=== PATIENT | male | born 1965 | race Caucasian/White ===

== ENCOUNTER 2017-06-10 07:40 | Day surgery (SDC) | payer OTHER ==
[~2017-06-10 07:40] MED LIST: Lactated Ringers 1,000 ML IV SCH; Lidocaine 1%/Sod Bicarbonate in NS 8.4% 1 ML Syringe IDERM PRN; Sodium Chloride 0.9% 10 ML Syringe FLUSH PRN
--- NOTE | 2017-06-10 08:33 | PCM.PREANE ---
Preanesthetic Assessment - Anesthesia/Transfusion/Family Hx Anesthesia History: Prior Anesthesia Without Reaction Family History of Anesthesia Reaction: No Transfusion History: Prior Transfusion Without Reaction - Review of Systems General: No Symptoms, Other (etoh 10-14 beers per week) Pulmonary: Other (current smoker) Cardiovascular: No Symptoms Gastrointestinal: No Symptoms Neurological: No Symptoms, Other (history of head injury, no residual) Other: Reports: Liver Problems (lesion on liver), Anxiety - Physical Assessment NPO Status Date: 06/09/17 NPO Status Time: 22:30 Pulse: 94 O2 Sat by Pulse Oximetry: 96 Respiratory Rate: 18 Blood Pressure: 131/90 Temperature: 37.1 C Vital Signs: Last Vital Signs Temp 37.1 C 06/10/17 07:40 Pulse 94 06/10/17 07:40 Resp 18 06/10/17 07:40 BP 131/90 06/10/17 07:40 Pulse Ox 96 06/10/17 07:40 Height: 1.73 m Weight: 88.451 kg ASA Class: 2 Mental Status: Alert & Oriented x3 Airway Class: Mallampati = 2 Dentition: Reports: Normal Dentition Thyro-Mental Finger Breadths: 3 Mouth Opening Finger Breadths: 3 ROM/Head Extension: Full Lungs: Clear to Auscultation Cardiovascular: Regular Rate, Regular Rhythm - Allergies Allergies/Adverse Reactions: Allergies Allergy/AdvReac Type Severity Reaction Status Date / Time No Known Allergies Allergy Verified 06/10/17 08:24 - Blood Blood Available: No Product(s) Available: None - Anesthesia Plan Pre-Op Medication Ordered: None - Acknowledgements Anesthesia Type Planned: MAC Pt an Appropriate Candidate for the Planned Anesthesia: Yes Alternatives and Risks of Anesthesia Discussed w Pt/Guardian: Yes Pt/Guardian Understands and Agrees with Anesthesia Plan: Yes PreAnesthesia Questionnaire HEENT History: Reports: Impaired Vision, Other (See Below) Other HEENT History: wears glasses Cardiovascular History: Reports: Other (See Below) Other Cardiovascular History: chest discomfort Respiratory History: Reports: None Gastrointestinal History: Reports: Chronic Diarrhea, Diverticulosis, Other (See Below) Other Gastrointestinal History: diverticula, liver lesion, abdominal pain Genitourinary History: Reports: None 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 Musculoskeletal History: Reports: Other (See Below) Other Musculoskeletal History: right shoulder pain Neurological History: Reports: Other (See Below) Other Neuro History: head injury Psychiatric History: Reports: Anxiety Endocrine/Metabolic History: Reports: Obesity/BMI 30+ Hematologic History: Reports: None Immunologic History: Reports: None Oncologic (Cancer) History: Reports: None Dermatologic History: Reports: None - Past Surgical History Cardiovascular Surgical History: Reports: None Respiratory Surgical History: Reports: None GI Surgical History: Reports: None Female Surgical History: Reports: None Male Surgical History: Reports: None Endocrine Surgical History: Reports: None Neurological Surgical History: Reports: None Musculoskeletal Surgical History: Reports: Other (See Below) Other Musculoskeletal Surgeries/Procedures:: foot surgery, knee surgery, left hip surgery with hardware Oncologic Surgical History: Reports: None Dermatological Surgical History: Reports: None - SUBSTANCE USE Smoking Status *Q: Current Every Day Smoker Days Per Week of Alcohol Use: 7 Number of Drinks Per Day: 2 Total Drinks Per Week: 14 Recreational Drug Use History: No - HOME MEDS Home Medications: Home Meds Multivitamin [Poly-Vitamin] 1 tab PO BID 06/06/17 [History] diphenhydrAMINE HCl [Sleep Aid] 1 tab PO DAILY 06/10/17 [History] - CURRENT (IN HOUSE) MEDS Current Meds: Current Medications Lactated Ringer's (Ringers, Lactated) 1,000 mls @ 125 mls/hr IV ASDIRECTED ELVIA Stop: 06/10/17 23:00 Last Admin: 06/10/17 08:00 Dose: 125 mls/hr Lidocaine/Sodium Bicarbonate (Buffered Lidocaine 1% In Ns 8.4%) 0.25 ml IDERM ONETIME PRN PRN Reason: Prior to IV Start Stop: 06/10/17 18:00 Last Admin: 06/10/17 07:59 Dose: 0.25 ml Sodium Chloride (Saline Flush) 10 ml FLUSH ASDIRECTED PRN PRN Reason: Keep Vein Open Stop: 06/10/17 18:00
[2017-06-10] MEDS ORDERED: fentaNYL 100 MCG/2 ML SDV ONE (08:57)
[2017-06-10] MEDS ORDERED: Propofol 200 MG/20 ML SDV ONE ×2 (08:57→09:45)
[2017-06-10] MEDS ORDERED: Midazolam 1 MG/ML 2 ML SDV ONE (08:58)
--- NOTE | 2017-06-10 10:01 | PCM.OPNOTE ---
- General Post-Op/Procedure Note Date of Surgery/Procedure: 06/10/17 Operative Procedure(s): Colonoscopy with cold forceps rectal polypectomy Findings: 1. Uncomplicated sigmoid diverticulosis 2. Diminutive rectal polyp less than 5 mm in diameter 3. Poor bowel preparation Pre Op Diagnosis: History of sigmoid diverticulitis Post-Op Diagnosis: 1. Sigmoid diverticulosis. 2. Diminutive rectal polyp Anesthesia Technique: MAC, Moderate Sedation Primary Surgeon: Garfield Dill Pathology: Rectal polyp EBL in mLs: 0 Complications: None Condition: Good Free Text/Narrative:: After adequate IV sedation and analgesia was obtained with monitoring the patient was placed on his left side. Perianal inspection and digital rectal examination were performed and were normal. The prostate was grossly normal. A lubricated colonoscope was then inserted into the rectum then advanced to the cecum without difficulty. The bowel preparation was poor. Fine mucosal detail and very small polyps have a lower probability of being seen. The cecum right colon transverse and descending colons were endoscopically normal with no gross mass lesions or inflammatory changes seen. The sigmoid had uncomplicated diverticuli with some thickening of the circular muscle. There were no inflammatory changes or mass lesions. The rectum had a diminutive polyp at about 15 cm from the anal verge. This was removed and retrieved with cold forceps. The retroflexed view was unremarkable. Air was removed as I finished the procedure which she tolerated well. Photographs were taken for the patient and for the medical record.
--- NOTE | 2017-06-10 10:09 | PCM48HPAN ---
Post Anesthesia Note - EVALUATION WITHIN 48HRS OF ANESTHETIC Vital Signs in Normal Range: Yes Patient Participated in Evaluation: Yes Respiratory Function Stable: Yes Airway Patent: Yes Cardiovascular Function Stable: Yes Hydration Status Stable: Yes Pain Control Satisfactory: Yes Nausea and Vomiting Control Satisfactory: Yes Mental Status Recovered: Yes Pulse Rate: 89 SaO2: 93 Resp Rate: 14 Temperature: 36.7 C Blood Pressure: 104/75 Pulse Rate: 89
== END 2017-06-10 10:40 | disposition home or self-care (01) ==
LOC: JD.SDS 07:40
PROVIDERS: ATTEND Surgery
DX: K62.1 Rectal polyp (principal); K57.30 Diverticulosis of large intestine without perforation or abscess without bleeding; F41.9 Anxiety disorder, unspecified; E66.9 Obesity, unspecified; F17.210 Nicotine dependence, cigarettes, uncomplicated; Z68.30 Body mass index [BMI] 30.0-30.9, adult; Z79.899 Other long term (current) drug therapy
CPT/HCPCS: 45380; J2250; J3010; J7120; 00811; J2704

== ENCOUNTER 2017-08-21 14:37 | Emergency (ER) | payer OTHER ==
[2017-08-21] MEDS ORDERED: Acetaminophen/HYDROcodone 325-5 MG Tab PO ONE (15:01)
--- NOTE | 2017-08-21 15:03 | EDM.PDOC ---
ED HPI GENERAL MEDICAL PROBLEM - General Chief Complaint: Upper Extremity Injury/Pain Stated Complaint: LEFT HAND INJURY Time Seen by Provider: 08/21/17 14:50 Source of Information: Reports: Patient - History of Present Illness INITIAL COMMENTS - FREE TEXT/NARRATIVE: Patient is here for evaluation after he had an injury while at work with a nail being shot to the back of his left hand. He is having pain to his left hand. Some mild bleeding. Able to move his fingers. He is not diabetic. Left Hand Pain Score (Numeric/FACES): 4 - Related Data Allergies Allergy/AdvReac Type Severity Reaction Status Date / Time No Known Allergies Allergy Verified 08/21/17 14:48 Home Meds: Home Meds Acetaminophen/HYDROcodone [[place] 325-5 MG] 1 tab PO Q6H PRN #10 tablet 08/21/17 [Rx] Amoxicillin/Potassium Clav [Augmentin 875-125 Tablet] 1 each PO BID #10 tablet 08/21/17 [Rx] Past Medical History HEENT History: Reports: Impaired Vision, Other (See Below) Other HEENT History: wears glasses Cardiovascular History: Reports: Other (See Below) Other Cardiovascular History: chest discomfort Respiratory History: Reports: None Gastrointestinal History: Reports: Chronic Diarrhea, Diverticulosis, Other (See Below) Other Gastrointestinal History: diverticula, liver lesion, abdominal pain Genitourinary History: Reports: None 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 Musculoskeletal History: Reports: Other (See Below) Other Musculoskeletal History: right shoulder pain Neurological History: Reports: Other (See Below) Other Neuro History: head injury Psychiatric History: Reports: Anxiety Endocrine/Metabolic History: Reports: Obesity/BMI 30+ Hematologic History: Reports: None Immunologic History: Reports: None Oncologic (Cancer) History: Reports: None Dermatologic History: Reports: None - Past Surgical History Cardiovascular Surgical History: Reports: None Respiratory Surgical History: Reports: None GI Surgical History: Reports: None Male Surgical History: Reports: None Endocrine Surgical History: Reports: None Neurological Surgical History: Reports: None Musculoskeletal Surgical History: Reports: Other (See Below) Other Musculoskeletal Surgeries/Procedures:: foot surgery, knee surgery, left hip surgery with hardware Oncologic Surgical History: Reports: None Dermatological Surgical History: Reports: None Social & Family History - Caffeine Use Caffeine Use: Reports: None Review of Systems - Review of Systems Review Of Systems: See Below Constitutional: Reports: No Symptoms Musculoskeletal: Reports: Hand Pain (Left hand pain, bleeding. (FB, nail)) Skin: Reports: Wound Neurological: Reports: No Symptoms ED EXAM, GENERAL - Physical Exam Exam: See Below Exam Limited By: No Limitations General Appearance: Alert, WD/WN, Mild Distress Cardiovascular: Normal Peripheral Pulses Extremities: Other (Left hand with nail foreign body, able to see entrance and exit.) Neurological: Alert, Oriented, No Motor/Sensory Deficits Psychiatric: Normal Affect, Normal Mood Skin Exam: Warm, Dry, Wound/Incision (Puncture wound 2 to the posterior left hand.) ED TRAUMA EXTREMITY PROCEDURES - Foreign Body Removal Indication:: Carpentry nail through posterior left hand Consent Obtained: Patient Performing Doctor:: Lou Cesar Anesthesia Type: Local Anesthesia Other:: Anesthesia with 7 mL and 1% lidocaine with epinephrine. Carpentry nail was removed with hemostat through route of entry. Patient had immediate improvement pain with removal of the nail. After removal neurovascular exam was intact. Patient had full extension of all fingers and good strength against resistance. Puncture wounds cleaned again, topical antibiotic and dressing applied. Complications:: No Course - Vital Signs Last Recorded V/S: Last Vital Signs Temp 98.5 F 08/21/17 14:49 Pulse 95 08/21/17 14:49 Resp BP 140/97 H 08/21/17 14:49 Pulse Ox 95 08/21/17 14:49 - Orders/Labs/Meds Orders: Active Orders 24 hr Category Date Time Status Vaccines to be Administered [RC] PER UNIT ROUTINE Care 08/21/17 16:09 Ordered Hand 2V Lt [CR] Stat Exams 08/21/17 16:08 Ordered Diphth,Pertuss(Acell),Tet Vac [Adacel] Med 08/21/17 16:09 Once 0.5 ml IM .ONCE ONE Medication Orders Diphtheria/Tetanus/Acell Pertussis (Adacel) 0.5 ml IM .ONCE ONE Stop: 08/21/17 16:10 Meds: Medications Generic Name Dose Route Start Last Admin Trade Name Freq PRN Reason Stop Dose Admin Diphtheria/Tetanus/Acell Pertussis 0.5 ml 08/21/17 16:09 Adacel IM 08/21/17 16:10 .ONCE ONE Discontinued Medications Generic Name Dose Route Start Last Admin Trade Name Freq PRN Reason Stop Dose Admin Hydrocodone Bitart/Acetaminophen 1 tab 08/21/17 15:01 08/21/17 15:08 [place] 325-5 Mg PO 08/21/17 15:02 1 tab ONETIME ONE Administration Lidocaine/Epinephrine 20 ml 08/21/17 15:32 Xylocaine 1% With Epinephrine 1:100,000 INJECT 08/21/17 15:33 ONETIME ONE - Re-Assessments/Exams Free Text/Narrative Re-Assessment/Exam: Foreign-body to posterior left hand, this was removed without difficulty. Tdap booster given. Will put patient on Augmentin twice a day 5 days prophylactically. Discussed wound care instructions and monitoring for infection. Patient had good function of left hand, good strength with extension. Neurovascular intact post foreign body excision. Ibuprofen 600 mg 3 times daily. Hydrocodone for breakthrough pain. Patient will follow-up with orthopedics or PCP within one week or sooner if needed. 08/21/17 16:18 Departure - Departure Time of Disposition: 16:20 Disposition: Home, Self-Care 01 Condition: Good Clinical Impression: Puncture wound of skin from metal nail - Discharge Information Prescriptions: Acetaminophen/HYDROcodone [[place] 325-5 MG] 1 tab PO Q6H PRN #10 tablet PRN Reason: Pain Amoxicillin/Potassium Clav [Augmentin 875-125 Tablet] 1 each PO BID #10 tablet Instructions: Wound Care, Adult Referrals: Elizabeth Medina PA-C [Primary Care Provider] - Forms: ED Department Discharge Additional Instructions: Keep the area clean and dry. Apply topical antibiotic to the puncture wounds and reapply bandage after showering tomorrow. Take the antibiotics twice a day for 5 days. Monitor for any increase in swelling, redness or drainage. Take ibuprofen 600 mg 3 times a day. Take hydrocodone as needed for breakthrough pain. Ice to your hand for 15 minutes every few hours today and tomorrow. You need to follow-up with orthopedics or your primary care provider in one week or sooner if needed. Return to the emergency room as needed. - My Orders Last 24 Hours: My Active Orders 08/21/17 16:08 Hand 2V Lt [CR] Stat 08/21/17 16:09 Vaccines to be Administered [RC] PER UNIT ROUTINE Diphth,Pertuss(Acell),Tet Vac [Adacel] 0.5 ml IM .ONCE ONE - Assessment/Plan Last 24 Hours: My Active Orders 08/21/17 16:08 Hand 2V Lt [CR] Stat 08/21/17 16:09 Vaccines to be Administered [RC] PER UNIT ROUTINE Diphth,Pertuss(Acell),Tet Vac [Adacel] 0.5 ml IM .ONCE ONE
[2017-08-21] MEDS ORDERED: Lidocaine 1% with EPINEPHrine 1:100,000 20 ML MDV INJECT ONE (15:32)
--- NOTE | 2017-08-21 15:48 | CR ---
Left hand: Two views of the left hand were obtained. Comparison: No prior hand exam. Metallic nail is projected posteriorly within the soft tissues. Deformity of the fifth metacarpal is seen compatible with old healed fracture. No acute bony abnormality is seen. Impression: 1. Metallic nail projected within the posterior soft tissues. 2. No acute bony abnormality is seen. Diagnostic code #3
[2017-08-21] MEDS ORDERED: Diphtheria,Pertussis(Acell),Tetanus Vaccine 0.5 ML SDV IM ONE (16:09)
--- NOTE | 2017-08-22 06:56 | CR ---
Left hand: Two views of the left hand were obtained. Comparison: Prior left hand study performed earlier on the same day (2:58 PM) Soft tissue swelling is noted. Metallic nail seen previously has been removed. No acute bony abnormality is seen. Incidental note of cysts within the distal navicular bone as well as joint space narrowing off the distal navicular bone. Impression: 1. Previous metallic nail has been removed. 2. Other incidental findings. No residual foreign body is seen. Diagnostic code #2
== END 2017-08-21 16:30 | disposition home or self-care (01) ==
LOC: JD.ED 14:37
DX: S61.442A Puncture wound with foreign body of left hand, initial encounter (principal); Y99.0 Civilian activity done for income or pay; E66.9 Obesity, unspecified
CPT/HCPCS: 20520; 73120; 90471; 90715; 99283; A9270; 99284

== ENCOUNTER 2020-02-06 09:14 | Emergency (ER) | payer BC, OTHER, SELFPAY ==
--- NOTE | 2020-02-06 09:44 | EDM.PDOC ---
ED HPI GENERAL MEDICAL PROBLEM - General Chief Complaint: Genitourinary Problem Stated Complaint: BLOOD IN URINE Time Seen by Provider: 02/06/20 09:30 Source of Information: Reports: Patient History Limitations: Reports: No Limitations - History of Present Illness INITIAL COMMENTS - FREE TEXT/NARRATIVE: 54-year-old male presents to the ED with sudden onset of painless gross hem aturia. This started last evening after he was doing some activities with a 6-year-old by bringing up his legs up over his head on a repetitive basis. However then he was up in the night and passed blood per urine x2 and this morning had difficulty voiding but finally a large clot came out and he was able to void with a large amount of gross hematuria again no pain this is never happened before. He has no known kidney disease. He has no pain to suggest a renal stone. He reports that he is currently of limited finances and did not want to pursue CT scan of the abdomen and pelvis. Onset: Sudden Onset Date: 02/05/20 Onset Time: 21:30 Duration: Hour(s):, Constant Location: Reports: Other (Painless gross hematuria) Quality: Reports: Other Severity: Moderate (No pain) Improves with: Reports: None Worsens with: Reports: None Context: Denies: Activity, Exercise, Lifting, Sick Contact, Trauma, Other Associated Symptoms: Denies: No Other Symptoms, Confusion, Chest Pain, Cough, cough w sputum, Diaphoresis, Fever/Chills, Headaches, Loss of Appetite, Nausea/Vomiting, Rash, Seizure, Shortness of Breath, Weakness Treatments CAMPUS SECURITY DIRECTOR: Reports: Other (see below) (None.) - Related Data Allergies Allergy/AdvReac Type Severity Reaction Status Date / Time No Known Allergies Allergy Verified 02/06/20 09:25 Home Meds: Home Meds Sulfamethoxazole/Trimethoprim [Bactrim Ds Tablet] 1 each PO BID #14 tablet 02/06/20 [Rx] Past Medical History HEENT History: Reports: Impaired Vision, Other (See Below) Other HEENT History: wears glasses Cardiovascular History: Reports: Other (See Below) Other Cardiovascular History: chest discomfort Respiratory History: Reports: None Gastrointestinal History: Reports: Chronic Diarrhea, Diverticulosis, Other (See Below) Other Gastrointestinal History: diverticula, liver lesion, abdominal pain Genitourinary History: Reports: None [employer]ER [employer] SUPER[employer]OR History: Reports: None Musculoskeletal History: Reports: Other (See Below) Other Musculoskeletal History: right shoulder pain Neurological History: Reports: Other (See Below) Other Neuro History: head injury Psychiatric History: Reports: Anxiety Endocrine/Metabolic History: Reports: Obesity/BMI 30+ Hematologic History: Reports: None Immunologic History: Reports: None Oncologic (Cancer) History: Reports: None Dermatologic History: Reports: None - Infectious Disease History Infectious Disease History: Reports: Chicken Pox - Past Surgical History Cardiovascular Surgical History: Reports: None Respiratory Surgical History: Reports: None GI Surgical History: Reports: None Male Surgical History: Reports: None Endocrine Surgical History: Reports: None Neurological Surgical History: Reports: None Musculoskeletal Surgical History: Reports: Other (See Below) Other Musculoskeletal Surgeries/Procedures:: foot surgery, knee surgery, left hip surgery with hardware Oncologic Surgical History: Reports: None Dermatological Surgical History: Reports: None Social & Family History - Tobacco Use Tobacco Use Status *Q: Current Every Day Tobacco User Years of Tobacco use: 20 Packs/Tins Daily: 0.5 - Caffeine Use Caffeine Use: Reports: Coffee, Tea - Recreational Drug Use Recreational Drug Use: Yes Drug Use in Last 12 Months: No 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 Difficulty voiding this morning and managed to pass a large clot and then the rest of the urine was quite bloody.) Musculoskeletal: Reports: No Symptoms Skin: Reports: No Symptoms Neurological: Reports: No Symptoms Psychiatric: Reports: No Symptoms Hematologic/Lymphatic: Reports: No Symptoms Immunologic: Reports: No Symptoms ED EXAM, RENAL/ - Physical Exam Exam: See Below Exam Limited By: No Limitations General Appearance: Alert, WD/WN, No Apparent Distress, Anxious, Other (Temperature is 36.6 heart rate 100 and sinus respiratory to 18 with O2 sats of 96% room air BP elevated 1 7104.) Eye Exam: Bilateral Eye: Normal Inspection (No scleral icterus or blepharal pallor.) Throat/Mouth: Normal Inspection, Normal Lips, Normal Oropharynx Respiratory/Chest: No Respiratory Distress, Lungs Clear, Normal Breath Sounds, No Accessory Muscle Use Cardiovascular: Normal Peripheral Pulses, Regular Rate, Rhythm, No Edema, No Gallop, No Murmur, No Rub GI/Abdominal: Normal Bowel Sounds, Soft, Non-Tender, No Organomegaly, No Mass, Pelvis Stable, Other (To palpation mildly obese. Previous appendectomy scar noted) (Male) Exam: No Hernia. No: Penile Lesions Back Exam: Normal Inspection, Full Range of Motion. No: CVA Tenderness (L), CVA Tenderness (R) Extremities: Normal Inspection, Normal Range of Motion, Non-Tender, No Pedal Edema Neurological: Alert, Oriented, CN II-XII Intact, Normal Cognition Psychiatric: Anxious Skin Exam: Warm, Dry, Intact, Normal Color, No Rash Course - Vital Signs Last Recorded V/S: Last Vital Signs Temp 36.6 C 02/06/20 09:21 Pulse 100 02/06/20 09:21 Resp 18 02/06/20 09:21 BP 170/104 H 02/06/20 09:21 Pulse Ox 96 02/06/20 09:21 - Orders/Labs/Meds Orders: Active Orders 24 hr Category Date Time Status CULTURE URINE [RM] Routine Lab 02/06/20 10:22 Received Labs: Laboratory Tests 02/06/20 02/06/20 02/06/20 Range/Units 09:55 09:55 09:55 WBC 6.69 (4.23-9.07) K/mm3 RBC 5.28 (4.63-6.08) M/mm3 Hgb 15.6 D (13.7-17.5) gm/dl Hct 45.4 (40.1-51.0) % MCV 86.0 (79.0-92.2) fl MCH 29.5 (25.7-32.2) pg MCHC 34.4 (32.2-35.5) g/dl RDW Std Deviation 39.1 (35.1-43.9) fL Plt Count 258 (163-337) K/mm3 MPV 9.7 (9.4-12.3) fl Neut % (Auto) 61.2 (34.0-67.9) % Lymph % (Auto) 24.4 (21.8-53.1) % Barry % (Auto) 10.2 (5.3-12.2) % Eos % (Auto) 3.4 (0.8-7.0) Baso % (Auto) 0.4 (0.1-1.2) % Neut # (Auto) 4.09 (1.78-5.38) K/mm3 Lymph # (Auto) 1.63 (1.32-3.57) K/mm3 Barry # (Auto) 0.68 (0.30-0.82) K/mm3 Eos # (Auto) 0.23 (0.04-0.54) K/mm3 Baso # (Auto) 0.03 (0.01-0.08) K/mm3 PT 11.1 (9.7-12.0) SECONDS INR 1.04 APTT 29.1 (21.7-31.4) SECONDS Sodium 138 (136-145) mEq/L Potassium 3.9 (3.5-5.1) mEq/L Chloride 102 (98-107) mEq/L Carbon Dioxide 28 (21-32) mEq/L Anion Gap 11.9 (5-15) BUN 12 (7-18) mg/dL Creatinine 1.0 (0.7-1.3) mg/dL Est Cr Clr Drug Dosing 81.70 mL/min Estimated GFR (MDRD) > 60 (>60) mL/min BUN/Creatinine Ratio 12.0 L (14-18) Glucose 105 (74-106) mg/dL Calcium 8.9 (8.5-10.1) mg/dL Total Bilirubin 0.7 (0.2-1.0) mg/dL AST 17 (15-37) U/L ALT 39 (16-63) U/L Alkaline Phosphatase 61 (46-116) U/L Total Protein 7.1 (6.4-8.2) g/dl Albumin 3.8 (3.4-5.0) g/dl Globulin 3.3 gm/dL Albumin/Globulin Ratio 1.2 (1-2) Urine Color (Yellow) Urine Appearance (Clear) Urine pH (5.0-8.0) Ur Specific [place] (1.005-1.030) Urine Protein (Negative) Urine Glucose (UA) (Negative) Urine Ketones (Negative) Urine Occult Blood (Negative) Urine Nitrite (Negative) Urine Bilirubin (Negative) Urine Urobilinogen (0.2-1.0) Ur Leukocyte Esterase (Negative) Urine RBC (0-5) /hpf Urine WBC (0-5) /hpf Ur Squamous Epith Cells (0-5) /hpf Urine Bacteria (FEW) /hpf Urine Mucus (FEW) /hpf 02/05/ Range/Units 10:29 WBC (4.23-9.07) K/mm3 RBC (4.63-6.08) M/mm3 Hgb (13.7-17.5) gm/dl Hct (40.1-51.0) % MCV (79.0-92.2) fl MCH (25.7-32.2) pg MCHC (32.2-35.5) g/dl RDW Std Deviation (35.1-43.9) fL Plt Count (163-337) K/mm3 MPV (9.4-12.3) fl Neut % (Auto) (34.0-67.9) % Lymph % (Auto) (21.8-53.1) % Barry % (Auto) (5.3-12.2) % Eos % (Auto) (0.8-7.0) Baso % (Auto) (0.1-1.2) % Neut # (Auto) (1.78-5.38) K/mm3 Lymph # (Auto) (1.32-3.57) K/mm3 Barry # (Auto) (0.30-0.82) K/mm3 Eos # (Auto) (0.04-0.54) K/mm3 Baso # (Auto) (0.01-0.08) K/mm3 PT (9.7-12.0) SECONDS INR APTT (21.7-31.4) SECONDS Sodium (136-145) mEq/L Potassium (3.5-5.1) mEq/L Chloride (98-107) mEq/L Carbon Dioxide (21-32) mEq/L Anion Gap (5-15) BUN (7-18) mg/dL Creatinine (0.7-1.3) mg/dL Est Cr Clr Drug Dosing mL/min Estimated GFR (MDRD) (>60) mL/min BUN/Creatinine Ratio (14-18) Glucose (74-106) mg/dL Calcium (8.5-10.1) mg/dL Total Bilirubin (0.2-1.0) mg/dL AST (15-37) U/L ALT (16-63) U/L Alkaline Phosphatase (46-116) U/L Total Protein (6.4-8.2) g/dl Albumin (3.4-5.0) g/dl Globulin gm/dL Albumin/Globulin Ratio (1-2) Urine Color Red H (Yellow) Urine Appearance Cloudy H (Clear) Urine pH 6.0 (5.0-8.0) Ur Specific [place] 1.025 (1.005-1.030) Urine Protein 2+ H (Negative) Urine Glucose (UA) Negative (Negative) Urine Ketones Negative (Negative) Urine Occult Blood 3+ H (Negative) Urine Nitrite Negative (Negative) Urine Bilirubin 1+ H (Negative) Urine Urobilinogen 0.2 (0.2-1.0) Ur Leukocyte Esterase Negative (Negative) Urine RBC Too numerous to cnt H (0-5) /hpf Urine WBC 0-5 (0-5) /hpf Ur Squamous Epith Cells 0-5 (0-5) /hpf Urine Bacteria Moderate H (FEW) /hpf Urine Mucus Not seen (FEW) /hpf - Radiology Interpretation Free Text/Narrative:: 54-year-old male presents to the ED with recurrent bouts of painless gross hematuria starting last evening about 2130 hrs. Found it somewhat difficult to void this morning but was able to pass a large clot and then the rest of the urine was quite bloody. This suggests a likely bladder origin for his gross hematuria. Plan will be to give him plenty of fluids that we can obtain a urinalysis for evaluation. He will have a CBC CMP and coags done. Prefers to delay CT of the abdomen and pelvis due to financial constraints. - Re-Assessments/Exams Free Text/Narrative Re-Assessment/Exam: 02/06/20 10:54 White count is 6.69. Auto differential shows 61% neutrophils. Hemoglobin is 15.6 with hematocrit of 45.4. MCV is 86.0 platelet count 258,000 PT is 11.1 with an INR of 1.04 and a PTT of 29.1. Sodium 138 with a potassium 3.9 chloride 102 with a bicarb of 28. Anion gap is 11.9. BUN is 12 with a creatinine of 1.0 GFR is greater than 60. Glucose is 105 calcium is 8.9 liver function is normal. Urinalysis is red cloudy and contains 2+ proteinuria negative glucose negative ketones 3+ occult blood negative nitrate 1+ bilirubin red cells are too numerous to count. White count is 0-5 no squamous epithelial cells moderate bacteria seen. Urine culture will therefore be ordered. Departure - Departure Time of Disposition: 11:00 Disposition: Home, Self-Care 01 Condition: Fair Clinical Impression: Gross hematuria - Discharge Information *PRESCRIPTION DRUG MONITORING PROGRAM REVIEWED*: Not Applicable *COPY OF PRESCRIPTION DRUG MONITORING REPORT IN PATIENT MAUREEN: Not Applicable Prescriptions: Sulfamethoxazole/Trimethoprim [Bactrim Ds Tablet] 1 each PO BID #14 tablet Instructions: Hematuria, Adult Referrals: PCP,None [Primary Care Provider] - Forms: ED Department Discharge Additional Instructions: Evaluation in the emergency room this morning in regards to bloody urine that you first noted last evening and that has persisted overnight with clots and bright red blood passage this morning. This usually means there is a problem somewhere in the urinary bladder causing the bleeding and it needs to be further evaluated by a urologist who can put a scope up in the bladder and identify where the bleeding is coming from. I will send your notes to Dr. Mendez urologist and [facility] at [facility] who's office will call you early next week with an appointment time to come in and have this procedure performed. In the meantime the urinalysis today is full of red blood cells and there are many bacteria present as well. Because of this I did place you in antibiotic Bactrim double strength twice daily for the next 7 days to hopefully clear up any infection that might be causing blood in the urine. You may continue all activities as before. Drink plenty of fluids of course to act like a flush to make sure that the blood does not clot in the bladder and make it impossible for you to pass your urine. If this is of course you would have to return to the ED for catheter placement and bladder irrigation. Active this needed to be done it would probably be prudent just to travel to [place] to have it done all at once by the specialist. Sepsis Event Note (ED) - Evaluation Sepsis Screening Result: No Definite Risk - Focused Exam Vital Signs: Vital Signs Temp Pulse Resp BP Pulse Ox 02/06/20 09:21 36.6 C 100 18 170/104 H 96 - My Orders Last 24 Hours: My Active Orders 02/06/20 10:22 CULTURE URINE [RM] Routine - Assessment/Plan Last 24 Hours: My Active Orders 02/06/20 10:22 CULTURE URINE [] Routine
== END 2020-02-06 11:20 | disposition home or self-care (01) ==
LOC: JD.ED 09:14
DX: R31.0 Gross hematuria (principal); F17.210 Nicotine dependence, cigarettes, uncomplicated; E66.9 Obesity, unspecified; Z68.33 Body mass index [BMI] 33.0-33.9, adult
CPT/HCPCS: 36415; 80053; 81001; 85025; 85610; 85730; 87086; 99283

== ENCOUNTER 2021-03-09 11:56 | Inpatient (IN) | payer BC ==
[2021-03-09] MEDS ORDERED: Morphine 2 MG/ML SYRINGE IV PRN (12:48)
[2021-03-09] MEDS: Acetaminophen 325 MG Tab PO SCH ×2 (13:20→20:33)
[2021-03-09] MEDS: Levofloxacin/Dextrose 5%-Water 750 MG in Premix Bag 1 BAG IV SCH (13:22)
[2021-03-09] MEDS: metroNIDAZOLE 500 MG Tab PO SCH ×2 (13:22→20:35)
[2021-03-09] MEDS: Lactated Ringers 1,000 ML IV SCH (13:23)
[2021-03-09] MEDS ORDERED: Lactated Ringers 1,000 ML IV ONE ×2 (14:18→15:40)
[2021-03-09] MEDS: oxyCODONE 5 MG Tab PO PRN ×2 (17:00→20:49)
[2021-03-10] MEDS: Lactated Ringers 1,000 ML IV SCH ×3 (00:48→19:44)
[2021-03-10] MEDS: oxyCODONE 5 MG Tab PO PRN ×3 (00:48→21:14)
[2021-03-10] MEDS: Acetaminophen 325 MG Tab PO SCH ×3 (05:39→21:13)
[2021-03-10] MEDS: metroNIDAZOLE 500 MG Tab PO SCH ×3 (05:40→21:13)
--- NOTE | 2021-03-10 09:35 | PCM.SN.2 ---
- Free Text/Narrative Note: Hospital day 2, admitted with diverticulitis with microperforation evident on CT S: feeling better, pain is not as bad. Passing flatus, stool. O: AF, sinus tachycardia ~ 110 bpm, BP wnl, SpO2 low 90% on room air Net positive nearly 2 L Awake and alert, no distress breathing comfortably on room air sinus tachycardia, good radial pulse abdomen slightly distended, focally tender at LLQ with guarding, no rigidity or rebound tenderness Skin warm, well perfused WBC down only slightly to 15.6 from 16. Other labs wnl. A: Stable overnight, with improvement in symptoms. No evidence of developing peritonitis from diverticulitis. Hopefully this bout will resolve with antibiotics and bowel rest alone, though the patient is at significant risk for developing an intra-abdominal abscess P: -continue current pain regimen -OOB walking today -continue LR @ 100 cc/hr -sips of clears/ bowel rest -IV levofloxacin, PO flagyl -repeat CBC, BMP in AM -serial abdominal exams
[2021-03-10] MEDS: Levofloxacin/Dextrose 5%-Water 750 MG in Premix Bag 1 BAG IV SCH (13:08)
[2021-03-10] MEDS ORDERED: traZODone 50 MG Tab PO PRN (21:21)
[2021-03-11] MEDS: Lactated Ringers 1,000 ML IV SCH (05:19)
[2021-03-11] MEDS: Acetaminophen 325 MG Tab PO SCH ×3 (05:20→19:54)
[2021-03-11] MEDS: oxyCODONE 5 MG Tab PO PRN ×3 (05:20→18:22)
[2021-03-11] MEDS: metroNIDAZOLE 500 MG Tab PO SCH ×3 (05:21→19:53)
--- NOTE | 2021-03-11 08:40 | PCM.SN.2 ---
- Free Text/Narrative Note: Hospital day 3, admitted with diverticulitis with microperforation evident on CT S: feeling even better, pain is not as bad. Passing flatus, stool. O: AF, VSS; tachycardia resolved Awake and alert, no distress breathing comfortably on room air RRR abdomen slightly distended, focally tender at LLQ with guarding, no rigidity or rebound tenderness Skin warm, well perfused WBC down to 10, other labs wnl A: Stable overnight, with improvement in symptoms. No evidence of developing peritonitis from diverticulitis. Hopefully this bout will resolve with antibiotics and bowel rest alone, though the patient is at significant risk for developing an intra-abdominal abscess P: -continue current pain regimen -OOB walking today -witch to mIVF D5 1/2 NS c KCl @ 50 cc/hr -advance to clear liquid diet -IV levofloxacin, PO flagyl, plan transition to oral levo tomorrow afternoon -repeat CBC in AM -serial abdominal exams -anticipate discharge to home on oral antibiotics tomorrow afternoon
[2021-03-11] MEDS: Levofloxacin/Dextrose 5%-Water 750 MG in Premix Bag 1 BAG IV SCH (12:34)
[2021-03-11] MEDS: D5 1/2 NS w/ 20 mEq/L KCl 1,000 ML IV SCH (14:47)
[2021-03-11] MEDS ORDERED: traZODone 50 MG Tab PO PRN (18:16)
[2021-03-12] MEDS: Acetaminophen 325 MG Tab PO SCH ×2 (00:56→04:29)
[2021-03-12] MEDS: metroNIDAZOLE 500 MG Tab PO SCH ×2 (00:56→04:29)
[2021-03-12] MEDS: D5 1/2 NS w/ 20 mEq/L KCl 1,000 ML IV SCH (04:30)
--- NOTE | 2021-03-12 08:48 | PCM.DCSUM1 ---
Discharge Summary - Hospital Course Free Text/Narrative:: Mr. Rowell was in clinic to see his primary provider on 03/09 for abdominal pain. Workup revealed diverticulitis with evidence of contained perforation. He had no signs of peritonitis, and was direct-admitted to the hospital for antibiotics, bowel rest and IV fluids. He was hospitalized for four days, and had continued improvement during his stay. He was kept on IV levofloxacin and oral metronidazole. WBC returned to normal and abdominal pain significantly improved. He was deemed fit for discharge to home on an oral antibiotic regimen. He was explicitly advised about the risk of abscess and instructed on what to watch for over the course of the next week. He will follow up in clinic in about two weeks. Diagnosis: Stroke: No - Discharge Data Discharge Date: 03/12/21 Discharge Disposition: Home, Self-Care 01 Condition: Good - Referral to Home Health Primary Care Physician: Elizabeth Medina PA-C - Patient Instructions Diet: GI Soft/Low Residue/Low Fiber Activity: As Tolerated Showering/Bathing: July Shower Notify Provider of: Fever, Increased Pain, Nausea and/or Vomiting - Discharge Plan *PRESCRIPTION DRUG MONITORING PROGRAM REVIEWED*: Not Applicable *COPY OF PRESCRIPTION DRUG MONITORING REPORT IN PATIENT MAUREEN: Not Applicable Prescriptions/Med Rec: Levofloxacin 750 mg PO DAILY #8 tablet metroNIDAZOLE [Metronidazole] 500 mg PO Q8H #24 tablet Home Medications: Home Meds Ascorbic Acid [Vitamin C] 1,000 mg PO DAILY 03/09/21 [History] Melatonin 6 mg PO BEDTIME PRN 03/09/21 [History] Multivitamin [Multivitamins] 2 tab PO DAILY 03/09/21 [History] Zinc 1 tab PO DAILY 03/09/21 [History] Levofloxacin 750 mg PO DAILY #8 tablet 03/12/21 [Rx] metroNIDAZOLE [Metronidazole] 500 mg PO Q8H #24 tablet 03/12/21 [Rx] Oxygen Therapy Mode: Room Air Patient Handouts: Steps to Quit Smoking, [id number], Sepsis, Diagnosis, Adult Referrals: Elizabeth Medina PA-C [Primary Care Provider] - - Discharge Summary/Plan Comment DC Time >30 min.: No Total # of Minutes for Discharge Time: 20 Discharge Summary/Plan Comment: Continue antibiotics for another week. Follow up in clinic on 03/22. Watch for signs of abscess. - Patient Data Vitals - Most Recent: Last Vital Signs Temp 36.7 C 03/12/21 07:42 Pulse 81 03/12/21 07:42 Resp 20 03/12/21 07:42 BP 126/96 H 03/12/21 07:42 Pulse Ox 95 03/12/21 07:42 Weight - Most Recent: 100.516 kg I&O - Last 24 hours: Intake & Output 03/11/21 03/12/21 03/12/21 22:59 06:59 14:59 Intake Total 1750 1715 208 Balance 1750 1715 208 Lab Results - Last 24 hrs: Laboratory Results - last 24 hr 03/12/21 Range/Units 05:05 WBC 6.84 (4.23-9.07) K/mm3 RBC 4.48 L (4.63-6.08) M/mm3 Hgb 13.4 L (13.7-17.5) gm/dl Hct 39.9 L (40.1-51.0) % MCV 89.1 (79.0-92.2) fl MCH 29.9 (25.7-32.2) pg MCHC 33.6 (32.2-35.5) g/dl RDW Std Deviation 40.9 (35.1-43.9) fL Plt Count 289 (163-337) K/mm3 MPV 10.0 (9.4-12.3) fl Neut % (Auto) 69.6 H (34.0-67.9) % Lymph % (Auto) 15.4 L (21.8-53.1) % Miller % (Auto) 9.9 (5.3-12.2) % Eos % (Auto) 4.2 (0.8-7.0) Baso % (Auto) 0.3 (0.1-1.2) % Neut # (Auto) 4.76 (1.78-5.38) K/mm3 Lymph # (Auto) 1.05 L (1.32-3.57) K/mm3 Miller # (Auto) 0.68 (0.30-0.82) K/mm3 Eos # (Auto) 0.29 (0.04-0.54) K/mm3 Baso # (Auto) 0.02 (0.01-0.08) K/mm3 Med Orders - Current: Current Medications Acetaminophen (Acetaminophen 325 Mg Tab) 975 mg PO Q8H [facility] Last Admin: 03/12/21 04:29 Dose: 975 mg Documented by: Metronidazole (Metronidazole 500 Mg Tab) 500 mg PO Q8H [facility] Last Admin: 03/12/21 04:29 Dose: 500 mg Documented by: Oxycodone HCl (Oxycodone 5 Mg Tab) 5 mg PO Q4H PRN PRN Reason: Pain (moderate 4-6) Last Admin: 03/11/21 18:22 Dose: 5 mg Documented by: Trazodone HCl (Trazodone 50 Mg Tab) 50 mg PO BEDTIME PRN PRN Reason: Insomnia Last Admin: 03/11/21 18:26 Dose: 50 mg Documented by: Discontinued Medications Potassium Chloride/Dextrose/Sod Cl (D5 1/2 Ns W/ 20 Meq/L Kcl) 1,000 mls @ 50 mls/hr IV ASDIRECTED [facility] Last Admin: 03/12/21 04:30 Dose: 50 mls/hr Documented by: Lactated Ringer's (Ringers, Lactated) 1,000 mls @ 100 mls/hr IV ASDIRECTED [facility] Last Admin: 03/11/21 05:19 Dose: 100 mls/hr Documented by: Levofloxacin/Dextrose 750 mg/ (Premix) 150 mls @ 100 mls/hr IV Q24H [facility] Last Admin: 03/11/21 12:34 Dose: 100 mls/hr Documented by: Lactated Ringer's (Ringers, Lactated) 1,000 mls @ 999 mls/hr IV .BOLUS ONE Stop: 03/09/21 15:18 Last Admin: 03/09/21 14:32 Dose: 999 mls/hr Documented by: Lactated Ringer's (Ringers, Lactated) 1,000 mls @ 999 mls/hr IV .BOLUS ONE Stop: 03/09/21 16:40 Last Admin: 03/09/21 15:43 Dose: 999 mls/hr Documented by: Morphine Sulfate (Morphine 2 Mg/Ml Syringe) 1 mg IV Q4H PRN PRN Reason: SEVERE PAIN (7-10) Last Admin: 03/09/21 13:21 Dose: 1 mg Documented by: Trazodone HCl (Trazodone 50 Mg Tab) 50 mg PO ONETIME PRN PRN Reason: Sleep Last Admin: 03/10/21 21:59 Dose: 50 mg Documented by:
== END 2021-03-12 12:00 | disposition home or self-care (01) | DRG 244 ==
LOC: JD.MS 11:56
PROVIDERS: ADMIT Nurse Practitioner Family; ATTEND Surgery
DX: K57.20 Diverticulitis of large intestine with perforation and abscess without bleeding (principal); F17.210 Nicotine dependence, cigarettes, uncomplicated; H54.7 Unspecified visual loss; K52.9 Noninfective gastroenteritis and colitis, unspecified; E66.9 Obesity, unspecified; Z98.890 Other specified postprocedural states; Z79.899 Other long term (current) drug therapy; Z90.49 Acquired absence of other specified parts of digestive tract; Z68.34 Body mass index [BMI] 34.0-34.9, adult
CPT/HCPCS: 36415; 80048; 83605; 85025; A9270-GY; J1956; J2270; J3480; J7120

== ENCOUNTER 2023-08-01 16:47 | Emergency (ER) | payer BC ==
[2023-08-01] MEDS: Sodium Chloride 0.9% 10 ML Syringe FLUSH ONE (17:10)
[2023-08-01 17:25] LABS: BASOPHILS ABSOLUTE AUTO 0.1 K/mm3 (0.0-0.2); BASOPHILS PERCENT AUTO 0.3 % (0.0-1.0); EOSINOPHILS ABSOLUTE AUTO 0.2 K/mm3 (0.0-0.4); HEMATOCRIT 46.1 % (42.0-52.0); HEMOGLOBIN 16.2 gm/dl (14.0-18.0); IMMATURE GRAN ABSOLUTE AUTO 0.12 K/mm3 (0.00-0.05); IMMATURE GRAN PERCENT AUTO 0.7 % (0.0-0.4); LYMPHOCYTES ABSOLUTE AUTO 1.5 K/mm3 (1.0-4.8); LYMPHOCYTES PERCENT AUTO 8.9 % (24.0-44.0); MEAN CORPUSCULAR HEMOGLOBIN 30.4 pg (28.0-32.0); MEAN CORPUSCULAR HGB CONC 35.1 g/dl (32.0-36.0); MEAN CORPUSCULAR VOLUME 86.5 fl (83.0-99.0); MEAN PLATELET VOLUME 9.9 fl (9.4-12.4); MONOCYTES ABSOLUTE AUTO 1.5 K/mm3 (0.0-0.8); MONOCYTES PERCENT AUTO 8.5 % (0.0-8.0); NEUTROPHILS ABSOLUTE AUTO 13.8 K/mm3 (1.8-7.7); NEUTROPHILS PERCENT AUTO 80.6 % (41.0-71.0); PLATELET COUNT,PLT 229 K/mm3 (150-400); RED BLOOD CELL COUNT 5.33 M/mm3 (4.52-5.90); WHITE BLOOD CELL COUNT,WBC 17.06 K/mm3 (3.9-11.3)
[2023-08-01 17:51] LABS: ALBUMIN 3.7 g/dl (3.4-5.0); ANION GAP 16.1 (5-15); BILIRUBIN TOTAL 1.4 mg/dL (0.2-1.0); C-REACTIVE PROTEIN 12.92 mg/dL (<0.30); CALCIUM 9.2 mg/dL (8.5-10.1); EST CRCL DRUG DOSING (CG) 72.66 mL/min; POTASSIUM,K 4.1 mEq/L (3.5-5.1); PROTEIN TOTAL,TP 7.3 g/dl (6.4-8.2)
[2023-08-01 17:53] LABS: LACTIC ACID 0.7 mmol/L (0.4-2.0)
[2023-08-01] MEDS: Sodium Chloride 0.9% 1,000 ML IV SCH (17:57)
[2023-08-01] MEDS ORDERED: Naloxone 0.4 MG/ML SDV IVPUSH PRN (18:11)
[2023-08-01] MEDS: fentaNYL 100 MCG/2 ML SDV IVPUSH ONE (18:14)
[2023-08-01] MEDS: Iopamidol 612 MG/ML 100 ML Bottle IVPUSH ONE (18:20)
[2023-08-01 19:04] LABS: APPEARANCE,URINE CLEAR (Clear); BILIRUBIN,URINE NEGATIVE (Negative); COLOR,URINE YELLOW (Yellow); GLUCOSE,URINE NEGATIVE (Negative); KETONES,URINE NEGATIVE (Negative); LEUKOCYTE ESTERASE,URINE NEGATIVE (Negative); NITRITE,URINE NEGATIVE (Negative); OCCULT BLOOD,URINE NEGATIVE (Negative); PH,URINE 6.5 (5.0-8.0); PROTEIN,URINE NEGATIVE (Negative); UROBILINOGEN,URINE 0.2 (0.2-1.0)
[2023-08-01] MEDS: metroNIDAZOLE/Normal Saline 500 MG in Premix Bag 1 BAG IV ONE (20:06)
[2023-08-01] MEDS: Levofloxacin/Dextrose 5%-Water 750 MG in Premix Bag 1 BAG IV ONE (21:08)
== END 2023-08-01 22:45 | disposition home or self-care (01) ==
LOC: JD.ED 16:47
DX: K57.32 Diverticulitis of large intestine without perforation or abscess without bleeding (principal); E66.9 Obesity, unspecified; F17.210 Nicotine dependence, cigarettes, uncomplicated; Z86.16 Personal history of COVID-19; Z79.899 Other long term (current) drug therapy; Z68.35 Body mass index [BMI] 35.0-35.9, adult
CPT/HCPCS: 36415; 74177; 80053; 81003; 83605; 83690; 85025; 86140; 96361; 96365; 96366; 96367; 96375; 99284; J1836; J1956; J3010; J3490; J7030; Q9967

== ENCOUNTER 2024-03-10 06:11 | Emergency (ER) | payer BC ==
[2024-03-10] MEDS ORDERED: Sodium Chloride 0.9% 10 ML Syringe FLUSH PRN (06:27)
[2024-03-10] MEDS: Sodium Chloride 0.9% 1,000 ML IV ONE (06:35)
[2024-03-10] MEDS: Ondansetron 4 MG/2 ML SDV IVPUSH ONE (06:35)
[2024-03-10] MEDS: LORazepam 2 MG/ML SDV IVPUSH ONE (06:35)
[2024-03-10 06:37] LABS: BASOPHILS ABSOLUTE AUTO 0.1 K/mm3 (0.0-0.2); BASOPHILS PERCENT AUTO 0.7 % (0.0-1.0); EOSINOPHILS ABSOLUTE AUTO 0.1 K/mm3 (0.0-0.4); EOSINOPHILS PERCENT AUTO 0.6 % (0.0-6.0); HEMOGLOBIN 17.7 gm/dl (14.0-18.0); IMMATURE GRAN ABSOLUTE AUTO 0.06 K/mm3 (0.00-0.05); IMMATURE GRAN PERCENT AUTO 0.6 % (0.0-0.4); LYMPHOCYTES ABSOLUTE AUTO 1.9 K/mm3 (1.0-4.8); LYMPHOCYTES PERCENT AUTO 19.9 % (24.0-44.0); MEAN CORPUSCULAR HGB CONC 33.4 g/dl (32.0-36.0); MEAN CORPUSCULAR VOLUME 89.8 fl (83.0-99.0); MEAN PLATELET VOLUME 9.5 fl (9.4-12.4); MONOCYTES PERCENT AUTO 10.3 % (0.0-8.0); NEUTROPHILS ABSOLUTE AUTO 6.4 K/mm3 (1.8-7.7); NEUTROPHILS PERCENT AUTO 67.9 % (41.0-71.0); PLATELET COUNT,PLT 309 K/mm3 (150-400); WHITE BLOOD CELL COUNT,WBC 9.38 K/mm3 (3.9-11.3)
[2024-03-10 06:55] LABS: A/G RATIO 1.1 (1-2); ALBUMIN 4.3 g/dl (3.4-5.0); ANION GAP 14.4 (5-15); BILIRUBIN TOTAL 0.9 mg/dL (0.2-1.0); CALCIUM 10.1 mg/dL (8.5-10.1); EST CRCL DRUG DOSING (CG) 88.38 mL/min; POTASSIUM,K 4.4 mEq/L (3.5-5.1); PROTEIN TOTAL,TP 8.1 g/dl (6.4-8.2); TSH 1.595 uIU/mL (0.358-3.74)
[2024-03-10] MEDS: chlordiazePOXIDE 25 MG Cap PO ONE (10:00)
== END 2024-03-10 10:05 | disposition home or self-care (01) ==
LOC: JD.ED 06:11
DX: F10.930 Alcohol use, unspecified with withdrawal, uncomplicated (principal); E66.9 Obesity, unspecified; F17.210 Nicotine dependence, cigarettes, uncomplicated; Z86.16 Personal history of COVID-19; Z79.899 Other long term (current) drug therapy; Z68.27 Body mass index [BMI] 27.0-27.9, adult
CPT/HCPCS: 36415; 80053; 80143; 80179; 80307; 84443; 84484; 85025; 93005; 93010; 96361; 96374; 96375; 99284; 99285-25; A9270-GY; J2060; J2405; J7030